=== PATIENT | female | born 1960 | race Caucasian/White ===

== ENCOUNTER 2021-12-31 12:49 | Outpatient (RCR) | payer OTHER, SELFPAY | END 2022-02-25 11:49 | disposition home or self-care (01) | PROVIDERS: PCP Family Medicine; Visit Provider Family Medicine | DX: M25.511 Pain in right shoulder (principal); M19.011 Primary osteoarthritis, right shoulder; Z51.89 Encounter for other specified aftercare | CPT/HCPCS: 97110; 97140 ==

== ENCOUNTER 2022-03-25 13:45 | Outpatient (CLI) | payer OTHER, SELFPAY ==
--- NOTE | 2022-03-25 14:00 | CRLHL7_ITS ---
For Patients: As a result of the Century Cures Act, medical imaging exams and procedure reports are released immediately into your electronic medical record. You may view this report before your referring provider. If you have questions, please contact your health care provider. BILATERAL SCREENING MAMMOGRAM WITH COMPUTER-AIDED DETECTION AND TOMOSYNTHESIS TECHNIQUE: CC and MLO views were obtained. These mammographic images have been obtained using full-field digital technique. These mammographic images were interpreted with the benefit of computer-aided detection. Breast Tomosynthesis was used in this interpretation. COMPARISON FILM: 02/12/21. FINDINGS: There are scattered areas of fibroglandular density IMPRESSION: There is no radiographic evidence for malignancy. ASSESSMENT: BI-RADS Category 1: Negative RECOMMENDATION: Routine screening mammogram in 1 year. A lay language report of this examination will be provided to the patient. Ben Jean-Baptiste M.D. Diagnostic Radiologist [email or web address] WENDY/balta / be/Dictated by: Ben Jean-Baptiste MD @ 03/26/2022 10:52:00 AM (Electronically Signed)
== END 2022-03-25 13:46 | disposition home or self-care (01) ==
LOC: MAMMO 13:45
PROVIDERS: PCP Family Medicine; Visit Provider Family Medicine
DX: Z12.31 Encounter for screening mammogram for malignant neoplasm of breast (principal)
CPT/HCPCS: 77063; 77067

== ENCOUNTER 2022-09-09 08:40 | Outpatient (CLI) | payer OTHER, SELFPAY | END 2022-09-09 08:41 | disposition home or self-care (01) | PROVIDERS: PCP Family Medicine; Visit Provider Family Medicine | DX: Z00.00 Encounter for general adult medical examination without abnormal findings (principal); E03.9 Hypothyroidism, unspecified; Z13.6 Encounter for screening for cardiovascular disorders; Z11.59 Encounter for screening for other viral diseases | CPT/HCPCS: 80053; 80061; 84443; 86803 ==

== ENCOUNTER 2022-09-27 15:19 | Outpatient (CLI) | payer OTHER, SELFPAY ==
--- NOTE | 2022-09-27 16:00 | CRLHL7_ITS ---
For Patients: As a result of the Cures Act, medical imaging exams and procedure reports are released immediately into your electronic medical record. You may view this report before your referring provider. If you have questions, please contact your health care provider. Indication: No abnormalities left thigh Technique: Ultrasound extremity left soft tissue Comparison: None Findings: Patient`s scan left lateral the area of clinical concern. No sonographic abnormalities including no masses, adenopathy, free fluid or fluid collections. Impression: No sonographic abnormalities left lateral 5. Clinical follow-up recommended. Dictated by Ben Finney MD @ 09/27/2022 4:15:02 PM (Electronically Signed)
== END 2022-09-27 15:20 | disposition home or self-care (01) ==
LOC: US 15:20
PROVIDERS: PCP Family Medicine; Visit Provider Surgery
DX: D17.9 Benign lipomatous neoplasm, unspecified (principal)
CPT/HCPCS: 76882

== ENCOUNTER 2023-03-29 09:45 | Outpatient (CLI) | payer OTHER, SELFPAY ==
--- NOTE | 2023-03-29 10:15 | CRLHL7_ITS ---
For Patients: As a result of the Century Cures Act, medical imaging exams and procedure reports are released immediately into your electronic medical record. You may view this report before your referring provider. If you have questions, please contact your health care provider. BILATERAL SCREENING MAMMOGRAM WITH COMPUTER-AIDED DETECTION AND TOMOSYNTHESIS TECHNIQUE: CC and MLO views were obtained. These mammographic images have been obtained using full-field digital technique. These mammographic images were interpreted with the benefit of computer-aided detection. Breast Tomosynthesis was used in this interpretation. COMPARISON FILM: 03/25/22, 02/12/21. FINDINGS: There are scattered areas of fibroglandular density IMPRESSION: There is no radiographic evidence for malignancy. ASSESSMENT: BI-RADS Category 1: Negative RECOMMENDATION: Routine screening mammogram in 1 year. A lay language report of this examination will be provided to the patient. Ben Jean-Baptiste M.D. Diagnostic Radiologist [email or web address] MYNOR/Dictated by: Ben Jean-Baptiste MD @ 03/29/2023 12:44:00 PM (Electronically Signed)
== END 2023-03-29 09:46 | disposition home or self-care (01) ==
LOC: MAMMO 09:46
PROVIDERS: PCP Family Medicine; Visit Provider Family Medicine
DX: Z12.31 Encounter for screening mammogram for malignant neoplasm of breast (principal)
CPT/HCPCS: 77063; 77067

== ENCOUNTER 2023-10-27 13:20 | Outpatient (CLI) | payer MEDICARE, OTHER, SELFPAY | END 2023-10-27 13:21 | disposition home or self-care (01) | PROVIDERS: PCP Family Medicine; Visit Provider Family Medicine | DX: Z00.00 Encounter for general adult medical examination without abnormal findings (principal); E03.9 Hypothyroidism, unspecified; E78.5 Hyperlipidemia, unspecified; K76.0 Fatty (change of) liver, not elsewhere classified; G47.00 Insomnia, unspecified | CPT/HCPCS: 80053; 80061; 84443 ==

== ENCOUNTER 2023-11-16 14:35 | Outpatient (CLI) | payer MEDICARE, OTHER, SELFPAY ==
--- NOTE | 2023-11-16 15:00 | XR_ITS ---
Patient: MARGIE LIN Facility:?[facility] Patient ID:?[id number] Site Patient ID:?[id number]. Site :?[id number] Study:?DEXA-Bone Density -11/16/2023 3:23:11 PM Ordering Physician:REBECCA Final Report: DXA BONE MINERAL DENSITY STUDY Reason for exam: Screening osteoporosis. Current height (in): 64. Weight (lb): 175. Menopause age: 56. Ethnicity: White. 1. Have you had a previous hip or vertebral fracture? No. 2. Have you had any fractures during your adult life which did not result from significant trauma (e.g., auto accident)? No. 3. Did either of your parents have a hip fracture? No. 4. Do you smoke? No. 5. Have you ever taken Glucocorticoids? No. 6. Do you have rheumatoid arthritis? No. 7. Do you have secondary osteoporosis? No. 8. Do you drink 3 or more alcoholic drinks per day? No. 9. Are you being treated for osteoporosis? No. 10. Have you ever taken any of the following medications: Actonel, Evista, Fosamax, Miacalcin, Reclast, Boniva, Forteo, HRT (i.e. estrogen/hormone therapy), Protelos, Prolia, Vitamin D, Calcium, other ? please specify. ANSWER: No. 11. Do you have any of the following medical conditions: Anorexia or bulimia, asthma or emphysema, end stage renal disease, hyperparathyroidism, any seizure disorders, cancer, inflammatory bowel diseases, hysterectomy, other ? please specify. ANSWER: No. 12. What was your maximum height (inches)? 64. 13. Do you perform weight bearing exercise regularly? Yes. 14. Do you regularly consume dairy products? Yes. 15. Do you drink caffeinated beverages? Yes. 16. At what age did your period start? 11. 17. Are you premenopausal? No. 18. How many full term pregnancies have you had? 2. 19. Have you ever missed your period for more than 6 months in a row (not including or menopause)? No. TECHNIQUE: Bone mineral density study was performed using the Nuve. FINDINGS: The results of the study expressed as bone mineral density (BMD) are as follows: Lumbar spine L1 to L4: BMD: 1.014 g/cm2. T-score: -0.3. Z-score: 1.5. Neck Left: BMD: 0.694 g/cm2. T-score: -1.4. Z-score: 0.1. Right: BMD: 0.711 g/cm2. T-score: -1.2. Z-score: 0.2. Total Left: BMD: 0.80 g/cm2. T-score: -1.0. Z-score: 0.2. Right: BMD: 0.781 g/cm2. T-score: -1.3. Z-score: -0.1. IMPRESSION: Osteopenia. FRAX 10-year Fracture Risk Major Osteoporotic Fracture: 8.4 percent Hip Fracture: 0.8 percent Reported Risk Factors: [place] () Neck BMD=0.694, BMI=30.0 Ben Jean-Baptiste M.D. Diagnostic Radiologist [email or web address] WENDY/sp R& Transcribed: 7:55 p.m. SP/Dictated by: Ben Jean-Baptiste MD @ 11/17/2023 9:21:00 AM Signed by:?Ben Jean-Baptiste MD @11/18/2023 5:25:07 AM (Electronic Signature)
== END 2023-11-16 14:36 | disposition home or self-care (01) ==
LOC: RAD 14:36
PROVIDERS: PCP Family Medicine; Visit Provider Family Medicine
DX: Z13.820 Encounter for screening for osteoporosis (principal); M85.89 Other specified disorders of bone density and structure, multiple sites
CPT/HCPCS: 77080

== ENCOUNTER 2024-11-01 11:36 | Outpatient (CLI) | payer MEDICARE, OTHER, SELFPAY | END 2024-11-01 11:37 | disposition home or self-care (01) | PROVIDERS: PCP Family Medicine; Visit Provider Family Medicine | DX: Z00.01 Encounter for general adult medical examination with abnormal findings (principal); E03.9 Hypothyroidism, unspecified; E78.5 Hyperlipidemia, unspecified; K76.0 Fatty (change of) liver, not elsewhere classified | CPT/HCPCS: 80053; 80061; 84443 ==

== ENCOUNTER 2024-11-07 11:54 | Outpatient (CLI) | payer MEDICARE, OTHER, SELFPAY ==
--- NOTE | 2024-11-07 12:15 | CRLHL7_ITS ---
For Patients: As a result of the Cures Act, medical imaging exams and procedure reports are released immediately into your electronic medical record. You may view this report before your referring provider. If you have questions, please contact your health care provider. Examination: US abdominal aorta Indication: Abdominal aortic aneurysm screening. Technique: Jane scale and color Doppler images of the aorta and common iliac arteries are obtained. Comparison: None Findings: Proximal aorta: 2.5 x 2.5 cm Mid aorta: 2.1 x 2.1 cm Distal aorta: 1.6 x 1.6 cm Right common iliac artery: 1.1 x 1.1 cm Left common iliac artery: 1.2 x 1.2 cm Impression: No abdominal aortic aneurysm. Dictated by Ben Jean-Baptiste MD @ 11/07/2024 2:39:37 PM (Electronically Signed)
== END 2024-11-07 11:55 | disposition home or self-care (01) ==
LOC: US 11:55
PROVIDERS: PCP Family Medicine; Visit Provider Family Medicine
DX: Z13.6 Encounter for screening for cardiovascular disorders (principal); Z87.891 Personal history of nicotine dependence
CPT/HCPCS: 76706

== ENCOUNTER 2025-02-07 14:53 | Outpatient (CLI) | payer MEDICARE, OTHER, SELFPAY ==
--- NOTE | 2025-02-07 15:20 | CRLHL7_ITS ---
For Patients: As a result of the Century Cures Act, medical imaging exams and procedure reports are released immediately into your electronic medical record. You may view this report before your referring provider. If you have questions, please contact your health care provider. INDICATION: BILATERAL SCREENING MAMMOGRAM, ASYMPTOMATIC 64 Y/O FEMALE COMPARISON: 03/29/2023, 03/25/2022, 02/12/2021 TECHNIQUE: Digital mammogram in CC and MLO projections including computer-aided detection (CAD) and tomosynthesis. BREAST COMPOSITION: There are scattered areas of fibroglandular density. FINDINGS: No suspicious findings. ASSESSMENT: BI-RADS 1 Negative RECOMMENDATION: Annual screening mammogram. A lay language report of this examination will be provided to the patient. Dictated by: Ben Jean-Baptiste MD @ 02/08/2025 08:57:18 (Electronically Signed)
== END 2025-02-07 14:54 | disposition home or self-care (01) ==
LOC: MAMMO 14:54
PROVIDERS: PCP Family Medicine; Visit Provider Family Medicine
DX: Z12.31 Encounter for screening mammogram for malignant neoplasm of breast (principal)
CPT/HCPCS: 77063; 77067

== ENCOUNTER 2025-04-02 12:08 | Outpatient (CLI) | payer MEDICARE, OTHER, SELFPAY ==
[2025-04-02 12:31] VITALS: BP 139/85; PULSE 84; RESP 16; TEMP 36.6; O2SAT 97
--- NOTE | 2025-04-02 13:25 | P.PCN_ITS ---
Procedure Note Time Seen by Provider: 13:45 Date Seen: 04/02/25 Provider Contact Time: 14:40 Date of procedure: 04/02/25 Will [facility] bill your pro fee for this procedure?: Yes Procedure: CRYONEUROLYSIS TREATMENT REPORT REFERRING PROVIDER: Baldomero Florentino TREATMENT PROVIDER: Tino Head PREOPERATIVE DIAGNOSIS: Right knee osteoarthritis POSTOPERATIVE DIAGNOSIS: Right knee osteoarthritis? PROCEDURE: Cryoneurolysis of Multiple Sensory Nerves of the Knee ANESTHESIA: Local INDICATIONS: The patient is a very pleasant 64-year-old female patient with primary osteoarthritis involving the right knee who presents today for cryoneurolysis of multiple sensory nerves to the knee for severe knee pain.?Patient medical history was reviewed. The risks, benefits, treatment alternatives, and complications were discussed with the patient, including but not limited to bleeding, infection, nerve or tissue damage.?Informed consent was obtained. ? PRE-TREATMENT MOTOR ASSESSMENT/PAIN SCORE: Patient was able to demonstrate intact gross motor function with plantarflexion, dorsiflexion, adduction, abduction, hip flexion, and extension of the lower extremity.?Pre-treatment pain score of 7 out of 10 in the right knee. DESCRIPTION OF PROCEDURE: After obtaining informed consent, the patient was brought back to the treatment room and positioned supine on the table.?The right lower extremity was prepped with Chlorhexadine.?We began the procedure by performing our procedural pause.?Once this was completed and verified to be accurate, I began the procedure by identifying the nerves with the use of bedside ultrasound.?After the nerves were identified, the skin was marked and, using 1% lidocaine plain, the area of the nerves were anesthetized. ? After the anesthetic was administered, the Smart Tip 2190 cryoneurolysis needle was inserted into the treatment sites using ultrasound guidance.?Treatment was then initiated on the right lower extremity with the following 5 nerves treated: Superior, superior medial, superior lateral, inferior medial genicular nerves and the infrapatellar branch of the saphenous nerve. At the termination of the treatment, the cryoneurolysis needle was removed with the patient's skin cleansed and Band-Aids an Waylon wrap applied. Patient tolerated the procedure without any incident or concern.? Patient was then instructed to stand, mobilize the joint, and was examined to ensure gross motor skills were intact. COMPLICATIONS: None POST-TREATMENT PAIN SCORE: 1 out of 10. Right knee DISPOSITION: Discharge instructions were given to the patient with education on the post-procedure expectations. Patient was instructed to call the Ortho clinic with any post-procedure concerns or questions.
[2025-04-02 14:43] VITALS: BP 150/79; PULSE 73; RESP 16; O2SAT 97
== END 2025-04-02 14:49 | disposition home or self-care (01) ==
LOC: OP CLINIC 12:08
PROVIDERS: PCP Family Medicine; Visit Provider Nurse Anesthetist, Certified Registered
DX: M17.11 Unilateral primary osteoarthritis, right knee (principal)
CPT/HCPCS: 64640; 76942; C9809

== ENCOUNTER 2025-04-04 13:59 | Outpatient (CLI) | payer MEDICARE, OTHER, SELFPAY | END 2025-04-04 14:00 | disposition home or self-care (01) | PROVIDERS: PCP Family Medicine; Visit Provider Family Medicine | DX: Z01.818 Encounter for other preprocedural examination (principal) | CPT/HCPCS: 80053; 87086 ==

== ENCOUNTER 2025-04-12 06:39 | Day surgery (SDC) | payer MEDICARE, OTHER, SELFPAY ==
[2025-04-12] VITALS (17 sets, daily range): BP systolic 87–140; BP diastolic 52–76; PULSE 75–83; RESP 14–16; TEMP 36.7–37.3; O2SAT 90–98; BMI 36.0
[2025-04-12] MEDS: OXYCODONE (CR) 10 MG TAB.ER.12H PO (07:30)
[2025-04-12] MEDS: ACETAMINOPHEN 500 MG TABLET 1000 MG PO (07:30)
[2025-04-12] MEDS: LACTATED RINGERS 1000 ML 1,000 ML 100 ML IV ×2 (07:58→10:10)
[2025-04-12] MEDS: SODIUM CHLORIDE 0.9 % (FLUSH) 10 ML SYRINGE IVF (08:00)
[2025-04-12] MEDS: MIDAZOLAM HCL 1 MG/ML inj IVP (08:43)
--- NOTE | 2025-04-12 08:56 | W.PM.H&PU ---
History & Physical Update History & Physical Update H&P Reviewed and patient assessed: No changes noted
--- NOTE | 2025-04-12 09:01 | P.NB_ITS ---
Nerve Block Nerve Block Time Seen by Provider: 08:47 Date Seen: 04/12/25 Type of block requested by surgeon for post-operative analgesia: adductor canal Side: right Time out performed: Yes Verification of patient name: Yes Verification of date of : Yes Site marking: site marked Name of person performing procedure: Pito Dunbar Assistants, if any: ELLIOTT Mendieta Continuous monitoring Was continuous monitoring of O2 sat, B/P, color television console monitor, recorded every 15 minutes?: Yes Procedure Checklist: sterile prep, needles and gloves Ultrasound guided. Images saved: Yes Medications given in 5ml increments after negative aspiration: Ropivicaine %: 0.5 mL: 30 Needle gauge: 20 Precedex (mcg): 25 Patient tolerated procedure well: Yes Additional comments: Injected in 5mL increments after negative aspiration Block Charges Block Charge (with Pro Fee): Femoral Nerve Use of Ultrasound Machine for Block: Yes- US Guidance/pain block
--- NOTE | 2025-04-12 09:04 | W.PM.NB ---
Nerve Block Nerve Block Time Seen by Provider: 08:50 Date Seen: 04/12/25 Type of block requested by surgeon for post-operative analgesia: geniculars Side: right Time out performed: Yes Verification of patient name: Yes Verification of date of : Yes Site marking: site marked Name of person performing procedure: Pito Dunbar Assistants, if any: ELLIOTT Mendieta Continuous monitoring Was continuous monitoring of O2 sat, B/P, playground monitor, recorded every 15 minutes?: Yes Procedure Checklist: sterile prep, needles and gloves Ultrasound guided. Images saved: No Medications given in 5ml increments after negative aspiration: Ropivicaine %: 0.5 mL: 12 Needle gauge: 25 Patient tolerated procedure well: Yes Additional comments: Injected in 4 mL increments after negative aspiration Block Charges Block Charge (with Pro Fee): Genicular Nerve Block Use of Ultrasound Machine for Block: No
--- NOTE | 2025-04-12 09:08 | SUR.PREOP ---
TIME?OUT:?0843 PT/RN/MDA?VERIFICATION?OF?SURGICAL?SITE,?PROCEDURE,?AND?CONSENT OBTAINED?PRIOR?TO?INVASIVE?PROCEDURE.
[2025-04-12] MEDS: TRANEXAMIC ACID 100 MG/ML INJ 1000 MG IV (09:38)
--- NOTE | 2025-04-12 10:41 | PM.ORPRC ---
Procedure Note Date of procedure: 04/12/25 Procedure: PREOPERATIVE DIAGNOSIS: 1. Right knee osteoarthritis, primary, severe POSTOPERATIVE DIAGNOSIS: 1. Right knee osteoarthritis, primary, severe PROCEDURE: 1. Right total knee arthroplasty, Press-Fit, Rotating Platform - No tourniquet SURGEON: Baldomero Florentino MD. JOURNEYMAN MILLWRIGHT: Roger Qureshi PA-C - Of note, a skilled urology physician assistant was critical for this case to aid in patient positioning, tissue retraction, limb manipulation/positioning, and closure. ANESTHESIA: Spinal anesthetic EBL: 100ml IMPLANTS: DePuy J&J uncemented TKA - Attune PS femur size 5 narrow Size 4 tibia Rotating Platform 5 RP poly spacer 35 mm Affixium patella TOURNIQUET: None COMPLICATIONS: None evident INDICATIONS: The patient is a pleasant 64-year-old female who has experienced severe right knee pain and difficulty bearing weight. Workup included x-rays which revealed severe osteoarthrosis in the knee. Given the deformity, the dysfunction, and the pain, as well as the failure of nonoperative management, recommendation was made for surgery. FINDINGS: Full-thickness chondral loss diffusely throughout the medial compartment and to a lesser degree patellofemoral and lateral compartments. Degenerative meniscus pathology medial greater than lateral. Moderate effusion upon entering the joint. DESCRIPTION OF PROCEDURE: Following a thorough discussion of risks, benefits, and alternatives consent was obtained and the right knee was marked. The patient was brought to the operating room and placed supine on the operating table. Induction of anesthesia was undertaken. 2 g IV Ancef and 1 g tranexamic acid was administered within 1 hr of incision preoperatively. Proper time-out was performed identifying proper patient, site, procedure. The operative extremity was prepped and draped in the appropriate sterile fashion using ChloraPrep after the patient was positioned supine with all bony prominences well padded. A longitudinal, anterior, midline skin incision was made starting approximately 3cm proximal to the superior pole of the patella and advanced distal to the tibial tubercle. A sub vastus approach was utilized. After mobilizing the patella, the retropatellar fatpad was resected and the synovium in the suprapatellar pouch excised to visualize the anterior femoral cortex. Patellar prep showed initial measurement/thickness of 20 mm. It was resected back to approximately 14 mm. The patella prep was completed with drilling and a trial placed followed by a protector plate until final component implantation. Femoral preparation was performed via an intramedullary guide. Step drill allowed access into the femoral canal. The distal cutting guide was placed with 5? of valgus and 10 mm cut on the distal femur. Femur was sized using a anterior referencing guide (in addition to referencing the transepicondylar axis and [place]'s line) in 3? of external rotation. This was found to have a best fit with the sizing noted above. The 4 in 1 cutting block was then placed, and the distal femur shaped accordingly. The box cut was then completed. We turned our attention to the proximal tibia. Extramedullary guide was utilized for cutting with the goal of being 90 degree cut from the mechanical axis of the tibia in the varus/valgus plane utilizing tibial crest as the primary alignment. Initially a 2 mm resection was performed from the medial tibial plateau. An additional 2 mm of tibial resection was needed to achieve proper balance in both flexion & extension. Ultimately, balancing was achieved in both flexion and extension in both varus and valgus. The knee was able to achieve full extension comfortably. It was sized to be a best fit with as noted above. At this stage, trial implants were removed, the tibia and femoral and patellar components were opened and inserted. The real poly spacer was opened and inserted. A 3 min Betadine soak performed. Finally, a final irrigation round with normal saline was performed. Closure performed with 0 PDS and #0 Stratafix for the quad tendon/retinaculum. 2-0 Vicryl/Stratafix for the subcutaneous and 4-0 Monocryl for subcuticular closure. Dressings were applied and the patient was awoken from anesthesia and transferred the PACU in stable condition. A skilled urology physician assistant was critical for this case to aid in patient positioning, tissue retraction, bone exposure, limb manipulation/positioning, patient safety, and closure. PLAN: 1. Weight bear as tolerated operative extremity. 2. 23 hr perioperative antibiotics. 3. Ice. 4. PT/OT consults for ambulation assistance/mobility education. 5. Social work consult for discharge planning. 6. DVT prophylaxis with at SCDs, and aspirin twice daily.
--- NOTE | 2025-04-12 11:23 | CRLHL7_ITS ---
For Patients: As a result of the Cures Act, medical imaging exams and procedure reports are released immediately into your electronic medical record. You may view this report before your referring provider. If you have questions, please contact your health care provider. Indication: POST OP RIGHT TKA Technique: Two views right knee Findings/Impression: Hardware from a right total knee arthroplasty is in satisfactory position. Bone alignment is normal. No sign of acute fracture. Postop changes are within normal limits. Dictated by Ben Jean-Baptiste MD @ 04/15/2025 10:04:15 AM (Electronically Signed)
--- NOTE | 2025-04-12 11:24 | P.ANES_ITS ---
Anesthesia Charges Start Date/Time Anesthesia Start Date: 04/12/25 Anesthesia Start Time: 09:20 Stop Date/Time Anesthesia Stop Date: 04/12/25 Anesthesia Stop Time: 11:21 Coding CPT Codes CPT Codes: ANESTH KNEE ARTHROPLASTY - 60817 ([id number]) P2 - PATIENT W/MILD SYST DISEASE, QZ - TANKER SERVICE ATTENDANT SVC W/O WOOD STOCK BLANK HANDLER BY
--- NOTE | 2025-04-12 11:24 | W.ANESCHARGE ---
Anesthesia Charges Start Date/Time Anesthesia Start Date: 04/12/25 Anesthesia Start Time: 09:20 Stop Date/Time Anesthesia Stop Date: 04/12/25 Anesthesia Stop Time: 11:21 Coding CPT Codes CPT Codes: ANESTH KNEE ARTHROPLASTY - 31874 ([id number]) P2 - PATIENT W/MILD SYST DISEASE, QZ - CONTAINER FINISHING INSPECTOR SVC W/O TRANSIT AUTHORITY POLICE OFFICER BY
== END 2025-04-12 13:35 | disposition home or self-care (01) ==
LOC: OR 06:41
PROVIDERS: PCP Family Medicine; Visit Provider Orthopaedic Surgery Sports Medicine
PROC: (CPT 27447; principal; 2025-04-12 08:45)
DX: M17.11 Unilateral primary osteoarthritis, right knee (principal); G89.18 Other acute postprocedural pain; L40.9 Psoriasis, unspecified; E03.9 Hypothyroidism, unspecified; K76.0 Fatty (change of) liver, not elsewhere classified; F41.8 Other specified anxiety disorders
CPT/HCPCS: 27447; 01402; 64447; 64454; 73560; 76942; 97110; 97116; 97161; A9270; C1713; C1776; J0690; J1100; J2250; J2371; J2405; J2704; J2795; J3010; J7120

== ENCOUNTER 2025-04-14 14:15 | Emergency (ER) | payer MEDICARE, OTHER, SELFPAY ==
--- OUTSIDE RECORDS SUMMARY | 2023-03-15 04:31 | XMS_ITS | Continuity of Care Document ---
Author Organization [facility] Address [address] [address] [place] [address] Phone Care Team Providers Care Investment Banking Associate Name Role Phone Shane Kmi CRNA Unavailable Allergies, Adverse Reactions, Alerts Substance Reaction Status Criticality Sulfa (Sulfonamide Antibiotics) unknown Active No Information Medications Medication Instructions Dosage Effective Dates (start - stop) Status Comments atorvastatin 20 mg tablet take 1 tablet by oral route every day 20 MG - Active Synthroid 50 mcg Tab Take one tablet by mouth daily - Active Vitamin D3 1,000 unit capsule take 1 Capsule by Oral route once 1 Capsule - No Longer Active CoQ-10 & Fish Oil 50 mg-300 (180-120)mg-30 unit capsule - No Longer Active Procedures Procedure Date Colonoscopy Flex; W/remov Les- Colonoscopy Flex; W/bx 1/mx Level Iv-surg Path Gross/micro 23 Colonoscopy Flex; W/remov Les- 20 Colonoscopy Flex; W/bx 1/mx Level Iv-surg Path Gross/micro Colonoscopy Flex; W/remov Les- 14 Level Iv-surg Path Gross/micro 14 Colonoscopy Flex; W/remov Les- 09 Level Iv-surg Path Gross/micro 09 Advance Directives Directive Yes / No Effective Date File Name No Information Encounters Encounter Description Practice Location Reason(s) For Visit Diagnoses Date Provider Providers Copied on Encounter [facility], [address] [address], [place], [id number], [place] tel:[phone] [facility] No Information 3 Julio Lynn. [address] [facility], [address], [id number], [place]. tel:[phone] Referring Provider: Javier Lewis MD, [address], [address]. tel:[phone] [facility], [address] [address], [place], [id number], [place] tel:[phone] [facility] GI Symptoms or Concerns (chief complaint) Colorectal polypsDiverticu losis of colon without diverticulitisH emorrhoids, internalEncount er for screening for malignant neoplasm of colonPersonal history of colonic polypsOther hemorrhoidsDvrt clos of lg int w/o perforation or abscess w/o bleedingPersona l history of colonic polyps 3 Joshua Herrera. [address], [id number], [place]. tel:[phone] Referring Provider: Referral Self, USE FOR SELF REFERRALS. [facility], [address] [address], [place], [id number], [place] tel:[phone] [facility] No Information 3 Dakota Tapia. [address] [facility], [address] [address], [place], [place], [id number], [place]. tel:[phone] [facility], [address] [address], [place], [place], [id number], [place] tel:[phone] [facility] Colorectal polypsPersonal history of colonic polypsDiverticu losis of colonInternal hemorrhoidsEnco unter for screening for malignant neoplasm of colonBenign neoplasm of cecumBenign neoplasm of ascending colonEncounter for screening for malignant neoplasm of colonBenign neoplasm of ascending colonBenign neoplasm of cecumPersonal history of colonic polyps 0 Eric Gaitan. [address], [id number], [place]. tel:[phone] Referring Provider: Referral Self, USE FOR SELF REFERRALS. [facility], [address] [address], [place], [id number], [place] tel:[phone] [facility] No Information 9 Nat Lynn. [address], [id number], [place]. tel:[phone] [facility], [address] [address], [facility] [place], [id number], [place] tel:[phone] [facility] Polyp-intes/rec t/stom-unc BehNeoplasm of uncertain behavior of small intestine 4 No Information [facility], [address] [address], [facility] [place], [id number], [place] tel:[phone] [facility] Personal History Colon PolypsBenign Neoplasm Colon 4 No Information [facility], [address] [address], [facility] [place], [id number], [place] tel:[phone] [facility] Polyp-intes/rec t/stom-unc BehColon Cancer ScreeningBenign Neoplasm Lg Bowel 9 Michael Alvarado. [address], [id number], [place]. tel:[phone] Family History Family Member Type Diagnosis Age At Onset Daughter Problem (finding) Alive and well Mother Problem (finding) malignant neoplasm of u terus Son Problem (finding) Alive and well Sister Problem (finding) Alive and well Brother Problem (finding) Alive and well Father Problem (finding) alcoholism Immunizations Vaccine Date Status Comments Afluria Qd administered Note: [facility] bi-directional interface ; Source: Other Registry SARS-COV-2 (COVID-19) vaccin e, mRNA, spike protein, LNP, bivalent, preservative free, 30 mcg/0.3 mL dose, es-sucrose formulation administered Note: [facility] bi-direct ional interface ; Source: Other Registry SARS-COV-2 (COVID-19) vaccin e, mRNA, spike protein, LNP, preservative free, 100 mcg/0.5mL dose or 50 mcg/0.25mL dose administered Note: [facility] bi -directional interface ; Source: Other Registry SARS-COV-2 (COVID-19) vaccin e, mRNA, spike protein, LNP, preservative free, 100 mcg/0.5mL dose or 50 mcg/0.25mL dose administered Note: [facility] bi -directional interface ; Source: Other Registry SARS-COV-2 (COVID-19) vaccin e, vector non-replicating, recombinant spike [id number], preservative free, 0.5 mL administered Note: [facility] bi- directional interface ; Source: Other Registry Afluria Qd administered Note: [facility] bi-directional interface ; Source: Other Registry Afluria Qd administered Note: [facility] bi-directional interface ; Source: Other Registry Fluzone Quad 6mo or older administered Note: [facility] bi-direct ional interface ; Source: Other Registry zoster vaccine recombinant administered N ote: [facility] bi-directional interface ; Source: Other Registry zoster vaccine recombinant administered N ote: [facility] bi-directional interface ; Source: Other Registry Influenza, injectable, Madin Fabi Canine Kidney, preservative free administered Note: [facility] bi-direct ional interface ; Source: Other Registry tetanus toxoid, reduced diphtheria toxoid, and acellular pertussis vaccine, adsorbed administered Note: [facility] b i-directional interface ; Source: Other Registry Afluria Qd administered Note: [facility] bi-directional interface ; Source: Other Registry Fluzone Quad 6mo or older administered Note: [facility] bi-direct ional interface ; Source: Other Registry tetanus toxoid, reduced diphtheria toxoid, and acellular pertussis vaccine, adsorbed administered Note: [facility] b i-directional interface ; Source: Other Registry Novel [id number], all formulations administered Note: [facility] bi-direct ional interface ; Source: Other Registry tetanus and diphtheria toxoi ds, adsorbed, preservative free, for adult use (2 Lf of tetanus toxoid and 2 Lf of diphtheria toxoid) administered Note: [facility] bi-direct ional interface ; Source: Other Registry Influenza, seasonal, injectable administe red Note: [facility] bi- directional interface ; Source: Other Registry Influenza, seasonal, injectable administe red Note: [facility] bi- directional interface ; Source: Other Registry Payers Payer name Insurance type Covered constitution party ID Vera gibson(s) [facility] [id number] Social History Type Description Quantity Date Captured Comments Sex Female Smoking Status No Information Chief Complaint And Reason For Visit No Information Reason For Referral Reason For Referral No Information Plan Of Treatment Date Type Action Status Referral Ordered: Colonoscopy Appointment date/timeframe: 05/21/2019 ordered History Of Present Illness Encounter Date Complaint History Of Prese nt Illness GI Symptoms or Concerns Functional Status Date Functional Assessmen t No Information Instructions Date Instruction Additional Infor mation Diverticulosis/Diverticulitis Re lated to Hemorrhoids, internal Colon Polyps Related to Hemor rhoids, internal Hemorrhoids Related to Hemor rhoids, internal Colon Cancer Prevention Related to Hemorrhoids, internal High Fiber Diet Related to Hemor rhoids, internal Assessments Type Assessment Date No Information Patient Care Teams Name Effective Dates (start - stop) Status Members No Information
--- OUTSIDE RECORDS SUMMARY | 2023-03-15 04:31 | XMS_ITS | Continuity of Care Document ---
Author Organization [facility] Address [address] [address] [place] [address] Phone Care Team Providers Care Representative Name Role Phone Shane Kim CRNA Unavailable Allergies, Adverse Reactions, Alerts Substance [...] Diagnoses Date Provider Providers Copied on Encounter [facility], [address] [address], [place], [id number], [place] tel:[phone] [facility] No Information 3 Julio Lynn. [address] [facility], [address], [id number], [place]. tel:[phone] Referring Provider: Javier Lewis MD, [address], [address]. tel:[phone] [facility], [address] [address], [place], [id number], [place] tel:[phone] [facility] GI Symptoms or Concerns (chief complaint) Colorectal polypsDiverticu losis of colon without diverticulitisH emorrhoids, internalEncount er for screening for malignant neoplasm of colonPersonal history of colonic polypsOther hemorrhoidsDvrt clos of lg int w/o perforation or abscess w/o bleedingPersona l history of colonic polyps 3 Joshua Herrera. [address], [id number], [place]. tel:[phone] Referring Provider: Referral Self, USE FOR SELF REFERRALS. [facility], [address] [address], [place], [id number], [place] tel:[phone] [facility] No Information 3 Dakota Tapia. [address] [facility], [address] [place] [address], [place], [place], [id number], [place]. tel:[phone] [facility], [address] [address], [place], [place], [id number], [place] tel:[phone] [facility] Colorectal polypsPersonal history of colonic polypsDiverticu losis of colonInternal hemorrhoidsEnco unter for screening for malignant neoplasm of colonBenign neoplasm of cecumBenign neoplasm of ascending colonEncounter for screening for malignant neoplasm of colonBenign neoplasm of ascending colonBenign neoplasm of cecumPersonal history of colonic polyps 0 Eric Gaitan. [address], [id number], [place]. tel:[phone] Referring Provider: Referral Self, USE FOR SELF REFERRALS. [facility], [address] [address], [place], [id number], [place] tel:[phone] [facility] No Information 9 Nat Lynn. [address], [id number], [place]. tel:[phone] [facility], [address] [address], [facility] [place], [id number], [place] tel:[phone] [facility] Polyp-intes/rec t/stom-unc BehNeoplasm of uncertain behavior of small intestine 4 No Information [facility], [address] [address], [facility] [place], [id number], [place] tel:[phone] [facility] Personal History Colon PolypsBenign Neoplasm Colon 4 No Information [facility], [address] [address], [facility] [place], [id number], [place] tel:[phone] [facility] Polyp-intes/rec t/stom-unc BehColon Cancer ScreeningBenign Neoplasm Lg Bowel 9 Michael Alvarado. [address], [id number], [place]. tel:[phone] Family History Family Member Type Diagnosis Age [...] i-directional interface ; Source: Other Registry Novel [id number], all formulations administered Note: [facility] bi-direct ional [...] Registry Payers Payer name Insurance type Covered alliance party ID Vera gibson(s) [facility] [id number] Social History Type Description Quantity Date Captured [...]
[2025-04-14] VITALS (17 sets, daily range): BP systolic 113–126; BP diastolic 52–65; PULSE 68–76; RESP 14–21; TEMP 36.4; O2SAT 92–98; BMI 34.3
--- OUTSIDE RECORDS SUMMARY | 2025-04-14 14:18 | XMS_ITS | Clinical Summary ---
Author Organization [facility] Address [address] [place] [address] Care Team Providers Care Health And Nutrition Specialist Name Role Phone None, Md Primary Care Provider [facility], No Primary Unavailable Unavailable Allergies Active Allergy Reactions Criticality Noted Date Comments Sulfa (Sulfonamide Antibiotics) Unknown 07/2008 Medications atorvastatin (LIPITOR) 20 mg oral tablet Take 1 tablet (20 mg) by mouth at bedtime. 03/22/2023 Active levothyroxine (SYNTHROID) 50 mcg oral tablet Take 1 tablet (50 mcg) by mouth. 03/23/2023 Active coenzyme [id number] 100-5 mg-unit oral Cap Take by mouth Daily. Active Active Problems No known active problems Social History Tobacco Use Types Packs/Day Years Used Date Smoking Tobacco: Never Smokeless Tobacco: Never Tobacco Cessation:Counseling Given: Not Answered Comments Unknown Sex and Gender Information Value Date Recorded Sex Assigned at Not on file Legal Sex Female 8:22 AM ANGIOGRAPHY NURSE Gender Identity Not on file Sexual Orientation Not on file Last Filed Vital Signs Vital Sign Reading Time Taken Comments Blood Pressure 123/76 06/02/2023 10:20 AM ANGIOGRAPHY NURSE Pulse 68 06/02/2023 10:20 AM ANGIOGRAPHY NURSE Temperature - - Respiratory Rate - - Oxygen Saturation 97% 06/02/2023 10:20 AM ANGIOGRAPHY NURSE Inhaled Oxygen Concentration - - Weight 80.5 kg (177 lb 6.4 oz) 06/02/2023 10:20 AM ANGIOGRAPHY NURSE Height 162.6 cm (5' 4) 06/02/2023 10:20 AM ANGIOGRAPHY NURSE Body Mass Index 30.45 06/02/2023 10:20 AM ANGIOGRAPHY NURSE Plan of Treatment Health Maintenance Due Date Last Done Comments Hepatitis C Screening 1960 Depression Assessment (PHQ-2) 09/10/1959 Pneumococcal 50+ Years (1 of 1 - PCV) 2008 Yearly Review of HCD 2008 Osteoporosis Screening 05/13/2013 05/13/2011 Mammogram Screening 02/12/2023 02/12/2021, 01/03/2020, 08/23/2018, Additional history exists Adult Tetanus Booster 06/05/2024 06/05/2014 , 08/06/2013, 02/24/2004 COVID-19 Vaccine ( season) 2025 03/30/2022, 09/24/2021, 04/17/2021, Additional history exists Influenza Vaccine (#1) 2025 , 03/26/2021, 03/18/2020, Additional history exists Colonoscopy 03/15/2033 03/15/2023, 03/15/2023 RSV Vaccines (1 - 1-dose 75+ series) 2033 Zoster Vaccine Completed 01/09/2019, 08/30/2018 Meningococcal B Vaccine Aged Out No l onger eligible based on patient's age to complete this topic Insurance [address] [id number] [place] [address] Datameer OPEN ACCESS/CHOICE FREYA ASHRAF [id number] Care Teams Health And Nutrition Specialist Relationship Specialty Start Date End Date None, PCP - General 06/01/23 Clinic, No Primary PCP - Primary Care Clinic 06/01/23
--- OUTSIDE RECORDS SUMMARY | 2025-04-14 14:18 | XMS_ITS | Clinical Summary ---
Author Organization [facility] Address [address] [place] [id number] Care Team Providers Care Advisory Internship Name Role Phone Alex Barcenas MD Primary Care Provider [phone] Allergies Active Allergy Reactions Criticality Noted Date Comments Sulfa (Sulfonamide Antibiotics) 10/26 Medications Cholecalciferol, Vitamin D3, (VITAMIN D-3) 400 unit Chew Take by mouth. 0 2 Active Coenzyme A48-Ahqpbjt E (COQ10 SG 100) 100-100 mg-unit cap Take 2 capsules by mouth once daily. 0 5 Active propranolol (INDERAL LA) 120 mg Cs24 Sustained-Release capsuleIndications :Migraine with aura and without status migrainosus, not intractable Take 1 capsule by mouth once daily. 90 capsule 1 7 Active clobetasol 0.05% TOPICAL (TEMOVATE) 0.05 % external solutionIndication s:Scalp psoriasis Apply topically to affected area(s) 2 times daily. As needed 1 Bottle 7 Active SUMAtriptan (IMITREX) 50 mg tabletIndications: Migraine with aura and without status migrainosus, not intractable TAKE 1 TABLET BY MOUTH TWO TIMES A DAY IF NEEDED FOR MIGRAINE. GIVE AT MINIMUM 2 HOURS APART . MAXIMUM DOSE 4 TABLETS IN 24 HOURS . 10 tablet 4 7 Active cholestyramine-suc jose 4 G per scoop (QUESTRAN) 4 gram powderIndications: Chronic diarrhea 1/2-1 SCOOP DAILY 1 Container 2 7 Active levothyroxine (SYNTHROID) 50 mcg tabletIndications: Acquired hypothyroidism Take 1 tablet by mouth once daily. 30 tablet 8 Active atorvastatin (LIPITOR) 20 mg tabletIndications: Dyslipidemia TAKE ONE TABLET BY MOUTH EVERY DAY 30 tablet 8 Active Active Problems Problem Noted Date Diagnosed Date Psoriasis 10/16/2014 Adenomatous polyp of colon 06/05/2014 Overview (06/05/2014): Last colo: 04/2014; Due repeat in 5 years Hip pain, left 06/05/2014 Overview (06/05/2014): Sciatic Nerve Cyst; Dr. Morin ([facility]) Dyslipidemia 02/02/2010 Depression with anxiety 02/02/2010 Overview (02/02/2010): mild Migraines 02/02/2010 Hypothyroidism 02/02/2010 Resolved Problems Problem Noted Date Diagnosed Date Resolved Date Routine health maintenance 02/02/2010 0 01/13/2017 Overview (05/19/2012): Last cpx-11/03 Last mammogram-05/08 Last lipid 11/03, LDL-78 Last colonoscopy-09/28 Immunizations Immunization Administration Dates Next Due Influenza, CCIIV3 (Age >=6 MO) (Egg Free) 2015 Influenza, IIV3 (Age >=3 years) 04/25/2015 Influenza, IIV4 04/23/2014 Td (Age >=7 Years) 02/24/2004 Tdap 06/05/2014 Family History Medical History Relation Name Comments Good Health Brother Alcohol/Drug Father Alcohol Cancer Mother female Cancer-ovarian Mother age 55 Hyperlipidemia Mother Other Mother heart valve d/o (replaced) Good Health Sister Cancer-breast No Family History Relation Name Status Comments Brother Father Mother Sister Social History Tobacco Use Types Packs/Day Years Used Date Smoking Tobacco: Former Smokeless Tobacco: Never Tobacco Cessation:Counseling Given: Yes Comments:quit at age 38 Alcohol Use Standard Drinks/Week Comments No 0 (1 standard drink = 0.6 oz pur e alcohol) Comments No Sex and Gender Information Value Date Recorded Sex Assigned at Not on file Legal Sex Female 7:54 AM [employer] Gender Identity Not on file Sexual Orientation Not on file 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 Not on file Not on file Obstetrics History Para Term AB IAB SAB Ectopic Multiple Livin g Live Births 2 2 Date Outcome GA Total Labor Labor/2nd/3rd Weight Sex Type Anes PTL Yulisa A1 A5 Name Clin Para Para Last Filed Vital Signs Vital Sign Reading Time Taken Comments Blood Pressure 116/84 01/13/2017 11:24 AM CDT Pulse 64 01/13/2017 11:24 AM CDT Temperature 37 C (98.6 F) 12/01/2016 4:12 PM CDT Respiratory Rate - - Oxygen Saturation 94% 11/19/2011 7:31 PM CDT Inhaled Oxygen Concentration - - Weight 93.9 kg (207 lb) 01/13/2017 11:24 AM CDT Height 163.8 cm (5' 4.5) 01/13/2017 11:24 AM CD T Body Mass Index 34.98 01/13/2017 11:24 AM CDT Plan of Treatment Health Maintenance Due Date Last Done Comments Pneumococcal series for age 50+ (1 of 1 - PCV) 2008 Zoster (shingles) series for age 50+ (1 of 2) 2008 Depression screening for age 12+ 12/01/2017 12/01/2016, 10/24/2015 BMI (ht and wt on same day) for age 18+ 01/13/2018 01/13/2017, 12/01/2016, 06/25/2016, Additional history exists Lipids for age 45-75 06/25/2021 06/25/2016, 02/09/2016, 06/13/2015, Additional history exists Mammogram for age 45-75 02/12/2022 02/13/20 21, 01/03/2020, 08/23/2018, Additional history exists DEXA/DXA scan for age 65+ 09/10/2023 05/13/2011 Tetanus booster 06/05/2024 06/05/2014, 02/24/2004 COVID-19 vaccine series (2 - season) 2025 10/02/2020 Influenza Vaccine (#1) 2025 6, 04/25/2015, 04/23/2014 Colonoscopy through age 75 03/15/203303/15, 07/12/2019, 05/20/2014, Additional history exists RSV vaccine for adults or (1 - 1-dose 75+ series) 2033 Hepatitis C screening for age 18-79 Completed 06/05/2014 Hepatitis B series for 19+ Aged Out N o longer eligible based on patient's age to complete this topic Procedures Procedure Name Priority Date/Time Associated Diagnosis Comments SCAN-COLONOSCOPY 03/15/2023 9:30 AM CDT XR MAMMO DWIGHT BILAT SCREEN Routine 02/12/2021 11:03 AM CDT Visit for screening mammogram LIPID PANEL Routine 06/25/2016 10:26 AM [employer] Dyslipidemia ANTI HCV Routine 06/05/2014 8:37 AM [employer] Need for hepatitis C screening test XR DXA BONE DENSITY 2 SITES AXIAL Routine 05/13/2011 1:46 PM [employer] Routine general medical examination at a health care facility from Last 3 Months or Most Recently Relevant to Health Maintenance Results * SCAN-COLONOSCOPY (03/15/2023 9:30 AM CDT) Narrative Procedure Note AdanJavier Ryo MD - 03/15/2023 8:11 AM CDT [facility] [address] [place] [address], [address], [place] [address] Patient Name: Jenny Mancuso Gender: Female Exam Date: 03/15/2023 Visit Number: [id number] Age: 62 Years Date of : 1960 Attending MD: Javier Lewis MD Medical Record#: [id number] Procedure: Colonoscopy Indications: Previous advanced adenomatous polyp(s) Follow up adenomatous polyp(s) Referring MD: Referral Self Primary MD: Teagan Boateng MD Medications: Admitting Medications: 0.9% Normal Saline at TKO Intra Procedure Medications: Patient received monitored anesthesia care. Complications: No immediate complications Procedure: An examination of the heart and lungs was performed and found to be withinacceptable limits. . The patient was therefore deemed a reasonablecandidate for endoscopy and sedation. The risks and benefits of the procedure were explained to the patient.After obtaining informed consent, the patient received monitoredanesthesia care and I passed the scope without difficulty via the rectum to the cecum. The appendiceal orificeand ic valve were identified. The scope was retroflexed during theexamination The quality of the prep was excellent (Brennen/Gat Split). This was a complete examination throughout the entire colon. Findings: Polyp location: cecum. Quantity: 1. Size: 2 mm. Polyp shape: sessile. Maneuver: polypectomy was performed with a cold biopsy forceps. Removal: complete. Retrieval: complete. Bleeding: none. Polyp location: ascending colon. Quantity: 1. Size: 4 mm. Polyp shape:sessile. Maneuver: polypectomy was performed with a cold snare . Removal: complete. Retrieval: complete. Bleeding: none. Polyp location: descending colon. Quantity: 1. Size: 6 mm. Polypshape: sessile. Maneuver: polypectomy was performed with a cold snare . Removal: complete. Retrieval: complete. Bleeding: none. Cecum and ascending polyps in same bottle. Diverticulosis. Location: - sigmoid. Description: mild. Size:small. Quantity: few. No inflammation present. Hemorrhoids. Internal hemorrhoids without bleeding. Remainder of the exam is normal. Impression: Colorectal polyps Diverticulosis of colon without diverticulitis Hemorrhoids, internal Preliminary Plan: The patient and their physician will receive a copy of the pathologyreport as well as pathology-based recommendations for future screening orsurveillance. Pathology Results: A: COLON, CECUM/ASCENDING, POLYPS: 1. Normal colonic mucosa; lymphoid aggregates are present(clinically, 2 polyps) 2. Negative for serrated change, dysplasia, and malignancy B: COLON, DESCENDING, POLYP: 1. Normal colonic mucosa; a lymphoid aggregate is present(clinically, 1 polyp) 2. Negative for serrated change, dysplasia, and malignancy MICROSCOPIC A: Performed B: Performed SPECIAL STAINING/DEEPER A: Deeper B: Deeper Electronically signed by: Thomas Holt MD Interpreted at [address], [place], [id number] Orders Instruction(s)/Education: Instruction/Education Timeframe Assessment Colon Cancer Prevention K64.8 Colon Polyps K64.8 Diverticulosis/Diverticulitis K64.8 Hemorrhoids K64.8 High Fiber Diet K64.8 Final Plan: Repeat colonoscopy in 5 years for Colon cancer surveillance. We will attempt to contact you at appropriate intervals via U.S. mail. Wemay not be able to find you or contact you at that time, therefore youshould know that the responsibility for following our recommendation restswith you. If you don't hear from us at the time your procedure is due,please contact our office to schedule an appointment. If your contactinformation should change, please contact our office so that we can updateyour record. _Electronically signed by: Javier Lewis MD 03/15/2023 cc: Teagan Boateng MD us Javier Arellano MD OTHER Final Resu lt * XR MAMMO DWIGHT BILAT SCREEN (02/12/2021 11:03 AM CDT) Anatomical Region Laterality Modality BREASTS, Breast Left, Breast Right Bilateral Mammography Impressions 02/14/2021 1:52 PM CDT There is no radiographic evidence for malignancy. Recommend annual mammograms. MAMMOGRAM ASSESSMENT: ACR 1 Negative PATIENTS: You will also receive a letter with your examination results in an easy to read format. If you have questions about your results, please contact your referring provider. Narrative 02/14/2021 1:52 PM CDT For Patients: As a result of the Century Cures Act, medical imaging exams and procedure reports are released immediately into your electronic medical record. You may view this report before your referring provider. If you have questions, please contact your health care provider. XR MAMMO DWIGHT BILAT SCREEN [[id number]] CLINICAL HISTORY: This is an asymptomatic 60 y.o. patient. INDICATION FOR EXAM: Mammogram Screening. TECHNIQUE: CC & MLO views were obtained. This study was evaluated with the assistance of Computer-Aided Detection. Breast Tomosynthesis was used in interpretation. COMPARISON FILM: Yes 01/03/20 08/14/18 FINDINGS: The breasts have scattered areas of fibroglandular density. There are no dominant masses, suspicious micro calcifications or areas of architectural distortion. Alla Roque MD MAMMO Final Result * (ABNORMAL) LIPID PANEL (06/25/2016 10:26 AM [employer]) CHOLESTEROL,TOTAL 198 100 - 199 mg/dL 06/25/2016 6:57 PM [employer] [facility] TRIGLYCERIDES 253(H) <150 mg/dL 06/25/2016 6:57 PM [employer] [facility] HDL CHOLESTEROL 42 >40 mg/dL 6 6:57 PM [employer] [facility] NON-HDL CHOLESTEROL 156(H) <145 mg/dl 06/25/2016 6:57 PM [employer] [facility] CHOL/HDL RATIO 4.71(H) <4.50 06/25/2016 6:57 PM [employer] [facility] LDL CHOLESTEROL 105 <=130 mg/dL 06/25/2016 6:57 PM [employer] [facility] PATIENT STATUS NOT GIVEN 06/25/2016 6:57 PM [employer] [facility] Blood BLOOD SPECIMEN / Unknown Venipuncture / Unknown 06/25/2016 10:26 AM [employer] 06/25/2016 10:26 AM [employer] us Alex Barcenas MD CHEMISTRY Final Resu lt [facility] [address] [place] [address], [place] * ANTI HCV [[id number]] (06/05/2014 8:37 AM [employer]) HEPATITIS C ANTIBODY Non-Reacti ve Non-Reacti ve 06/05/2014 1:39 PM [employer] [facility] Blood specimen (specimen) BLOOD SPECIMEN / Unknown Venipuncture / Unknown 06/05/2014 8:37 AM [employer] 06/05/2014 8:37 AM [employer] Narrative [facility] - 06/05/2014 1:39 PM [employer] Antibodies to HCV not detected; does not exclude the possibility of exposure to HCV. Yokasta DAVID SEND OUTS Final Result [facility] [address] [place] [address], [place] * XR DEXA BONE DENSITY 2 SITES (05/13/2011 1:46 PM [employer]) Anatomical Region Laterality Modality Spine, HIPS, HIPL, HIPR Other 05/13/2011 1:46 PM [employer] Narrative 05/13/2011 3:48 PM [employer] BONE DENSITY BONE DENSITY (DEXA) May 13, 2011 01:46:00 PM HISTORY: Baseline study. COMPARISON: None. TECHNIQUE: The study was performed using DEXA in the AP lumbar spine and AP femur using a Hologic Discovery C. FINDINGS: Using DEXA, the results were reported according to T score. The T score is the standard deviation from the peak bone mass in a normal young patient. A T score of 0 to -1.0 is normal. A T score of -1.0 to -2.5 correlates with osteopenia. A T score of less than -2.5 correlates with osteoporosis. The total T-score from L1 to L4 is +1.0. The T-score for the left femoral neck is -0.2. The bone mineral density of the left femoral neck is 0.831 g/cm2. IMPRESSION: No evidence of osteopenia or osteoporosis. Procedure Note Shun Trejo - 05/13/2011 BONE DENSITY BONE DENSITY (DEXA) May 13, 2011 01:46:00 PM HISTORY: Baseline study. COMPARISON: None. TECHNIQUE: The study was performed using DEXA in the AP lumbar spine and AP femur using a Hologic Discovery C. FINDINGS: Using DEXA, the results were reported according to T score. The T score is the standard deviation from the peak bone mass in a normal young patient. A T score of 0 to -1.0 is normal. A T score of -1.0 to -2.5 correlates with osteopenia. A T score of less than -2.5 correlates with osteoporosis. The total T-score from L1 to L4 is +1.0. The T-score for the left femoral neck is -0.2. The bone mineral density of the left femoral neck is 0.831 g/cm2. IMPRESSION: No evidence of osteopenia or osteoporosis. Alex Barcenas MD DEXA Final Resu lt from Last 3 Months or Most Recently Relevant to Health Maintenance Insurance [id number] [place] [address] HP FREYA [id number] Care Teams Advisory Internship Relationship Specialty Start Date End Date Alex Barcenas MD [address] [place] [address] PCP - General Family Practice 08/14/18
--- OUTSIDE RECORDS SUMMARY | 2025-04-14 14:18 | XMS_ITS | Clinical Summary ---
Author Organization [facility] Address [address] [place] [address] Care Team Providers Care Pen Ruler Operator Name Role Phone Alla Roque MD Primary Care Provider [phone] Allergies Active Allergy Reactions Criticality Noted Date Comments Sulfa Antibiotics 10/03/2007 unknown Medications Cholecalciferol (VITAMIN D3 PO) Take 1,000 Units by mouth daily Active co-enzyme Q-10 100 MG CAPS capsule Take by mouth daily Active multivitamin w/minerals (MULTI-VITAMIN) tablet Take 1 tablet by mouth daily Active atorvastatin (LIPITOR) 20 MG tabletIndications:M ixed hyperlipidemia Take 1 tablet (20 mg) by mouth daily 90 tablet 3 1 Active levothyroxine (SYNTHROID/LEVOTHRO ID) 50 MCG tabletIndications:O ther specified hypothyroidism Take 1 tablet (50 mcg) by mouth daily 90 tablet 3 1 Active PROLENSA 0.07 % ophthalmic solution PLACE 1 DROP 4 TIMES DAILY 1 WEEK BEFORE AND 4 WEEKS AFTER, THEN TWICE DAILY FOR 4 WEEKS 1 Active LOTEMAX 0.5 % GEL PLACE 1 DROP 4 TIMES DAILY 1 WEEK BEFORE AND 4 WEEKS AFTER SURGERY, THEN TWICE DAILY FOR 4 WEEKS 1 Active moxifloxacin (VIGAMOX) 0.5 % ophthalmic solution PLACE 1 DROP IN EYE FOUR TIMES DAILY 1 WEEK BEFORE AND FOR 4 WEEKS AFTER, THEN TWICE DAILY FOR 4 WEEKS 1 Active Active Problems Problem Noted Date Diagnosed Date Fatty liver 03/06/2021 Adenomatous polyp of colon 06/05/2014 Overview (10/30/2019): Overview: Last colo: 04/2014; Due repeat in 5 years Depression with anxiety 02/02/2010 Overview (10/30/2019): Overview: mild Dyslipidemia 02/02/2010 Symptomatic menopausal or female climacteric sta debby 10/03/2007 Other specified hypothyroidism 10/03/2007 Overview (03/28/2015): Problem list name updated by automated process. Provider to review Migraine 10/03/2007 Overview (03/28/2015): Problem list name updated by automated process. Provider to review Resolved Problems Problem Noted Date Diagnosed Date Resolved Date ACP (advance care planning) 10/30/2019 03/10/2020 Health Snf 10/30/2019 12/12/2023 Lumbago 06/07/2017 03/06/2021 Psoriasis 10/16/2014 03/06/2021 Hip pain, left 06/05/2014 10/24/2020 Overview (10/30/2019): Overview: Sciatic Nerve Cyst; Dr. Morin ([facility]) Hyperlipidemia LDL goal <130 04/26/2010 10/24/2020 Mixed hyperlipidemia 10/03/2007 021 Backache 10/03/2007 03/06/2021 Overview (03/28/2015): Problem list name updated by automated process. Provider to review Immunizations Immunization Administration Dates Next Due COVID-19 Vaccine (Joana) 10/02/2020 Flu, Unspecified 04/10/2016 INFLUENZA,TRIVALENT (FLUCELVAX) 04/10/2016 Influenza (H1N1) 05/28/2009 Influenza (IIV3) PF 04/25/2015,05/14/2003,1998 Influenza Vaccine >6 months,quad, PF 03/18/2020, 04/12/2019,04/23/2014 TD,PF 7+ (Tenivac) 02/24/2004,07/05/1994 TDAP Vaccine (Boostrix) 06/05/2014,08/06/2013 Td (Adult), Adsorbed 02/24/2004 Zoster recombinant adjuvanted (Shingrix) 019,08/30/2018 Family History Medical History Relation Comments Lipids Maternal Grandfather Cancer - colorectal Maternal Grandmother Lipids Maternal Grandmother Cancer Mother ovarian? Lipids Mother Relation Status Comments Maternal Grandfather Maternal Grandmother Mother Social History Tobacco Use Types Packs/Day Years Used Date Smoking Tobacco: Former Smokeless Tobacco: Never Comments:quit 1999 Alcohol Use Standard Drinks/Week Comments No 0 (1 standard drink = 0.6 oz pur e alcohol) AUDIT-C Answer Date Recorded Q1: How often do you have a drink containing alc ohol? 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 Not on file Not on file Not on file Last Filed Vital Signs Vital Sign Reading Time Taken Comments Blood Pressure 118/70 03/06/2021 2:04 PM CDT Pulse 61 03/06/2021 2:04 PM CDT Temperature 36.6 C (97.8 F) 03/06/2021 2:04 PM CDT Respiratory Rate 20 01/20/2021 5:27 PM CDT Oxygen Saturation 97% 03/06/2021 2:04 PM CDT Inhaled Oxygen Concentration - - Weight 85.5 kg (188 lb 9.6 oz) 03/06/2021 2:04 P M CDT Height 162.6 cm (5' 4) 03/06/2021 2:04 PM CDT Body Mass Index 32.37 03/06/2021 2:04 PM CDT Plan of Treatment Health Maintenance Due Date Last Done Comments ANNUAL REVIEW OF HM ORDERS 1960 CT COLONOGRAPHY 1960 DEXA 1960 FIT 1960 FLEX SIG 1958 sDNA (Cologuard) 1958 LUNG CANCER SCREENING 2008 PNEUMOCOCCAL VACCINE 50+ YEARS (1 of 1 - PCV) 2008 TSH W/FREE T4 REFLEX 10/31/2021 10/31/2020, 10/30/2019, 10/03/2007, Additional history exists MAMMO SCREENING 02/12/2023 02/12/2021, 07/0 02/2020, 01/29/2009, Additional history exists FALL RISK ASSESSMENT 09/10/2023 DIABETES SCREENING 03/06/2024 03/06/2021, 0 10/31/2020, 10/30/2019, Additional history exists PHQ-2 (once per calendar year) 2024 10/31/2020, 10/30/2019 COVID-19 VACCINE ( - season) 2025 10/02/2020 INFLUENZA VACCINE (#1) 2025 0, 04/12/2019, 04/10/2016, Additional history exists ADVANCE CARE PLANNING 03/10/2025 03/10/2020, 020 LIPID 10/31/2025 10/31/2020, 05/0 10/2019, 07/05/2010, Additional history exists DTAP/TDAP/TD VACCINE (4 - Td or Tdap) 10/29/2029 10/30/2019 (Not Needed), 06/05/2014, 08/06/2013, Additional history exists COLONOSCOPY 03/15/2033 03/15/2023, 06/27, 10/08/2003 COLORECTAL CANCER SCREENING 03/15/2033 RSV VACCINE (1 - 1-dose 75+ series) 2033 ZOSTER VACCINE Completed 01/09/2019, 08/30/2018 PAP Discontinued 10/30/2019, 10/26, 07/22/2006 HEPATITIS C SCREENING Completed 10/31/2020, 021 HPV VACCINE (No Doses Required) Completed MENINGITIS VACCINE Aged Out No longer eligible based on patient's age to complete this topic Procedures Procedure Name Priority Date/Time Associated Diagnosis Comments BASIC METABOLIC PANEL (BFP) Routine 03/06/2021 3:13 PM CDT Preoperative examination HEPATITIS C ANTIBODY Routine 10/31/2020 11:01 AM CDT Encounter for hepatitis C screening test for low risk patient TSH WITH FREE T4 REFLEX Routine 10/31/2020 11:01 AM CDT Other specified hypothyroidism LIPID PANEL (BFP) Routine 10/31/2020 Depression with anxiety THINPREP PAP RFLX HPV MRNA E6/E7 ([facility]) Routine 10/30/2019 10:30 AM CDT Encounter for gynecological examination (general) (routine) without abnormal findings HC MAMMO SCREEN BILATATERAL, INCL CAD WHEN PERF Routine 01/29/2009 8:39 AM CDT COLONOSCOPY Routine 10/08/2003 DIAGNOSIS NOT YET DEFINED from Last 3 Months or Most Recently Relevant to Health Maintenance Results * (ABNORMAL) Basic Metabolic Panel (BFP) (03/06/2021 3:13 PM CDT) Carbon Dioxide 29.7 20 - 32 mmol/L [facility] Creatinine 0.82 0.60 - 1.30 mg/dL [facility] Glucose 112(A) 60 - 99 mg/dL [facility] Sodium 141.7 135 - 146 mmol/L [facility] Potassium 4.79 3.5 - 5.3 mmol/L [facility] Chloride 104.1 98 - 110 mmol/L [facility] Urea Nitrogen 13 7 - 25 mg/dL [facility] Calcium 9.2 8.6 - 10.3 mg/dL [facility] BUN/Creatinine Ratio 15.9 6 - 22 [facility] Blood 03/06/2021 3:13 PM CDT us Alla Roque MD LAB - NON-BEAKER BLOOD LABS Final Result [facility] [address] [place] [phone] * TSH with free T4 reflex ([facility]) (10/31/2020 11:01 AM CDT) TSH 2.45 0.40 - 4.50 mIU/L [facility] Blood 10/31/2020 11:0 1 AM CDT 11/01/2020 12:45 AM CDT Narrative Resulting Agency Comment Performing Organization Information: [facility] [address] [place] [address] Carlos Johnson M.D. us Alla Roque MD LAB - BLOOD ORDERABLES Final Result [facility] [address] [place], [place] [address] [phone] * (ABNORMAL) Lipid Panel (BFP) (10/31/2020) Cholesterol 147 0 - 199 mg/dL [facility] Triglycerides 176(A) 0 - 149 mg/dL [facility] HDL Cholesterol 39(A) 40 - 150 mg/dL [facility] LDL Cholesterol Direct 73 0 - 130 mg/dL [facility] Cholesterol/HDL Ratio 4 0 - 5 [facility] Blood 10/31/2020 us Alla Roque MD LAB - NON-BEAKER BLOOD LABS Final Result [facility] [address] [place] [id number] * ThinPrep Pap and HPV (mRNA E6/E7){HPV-REFLEX} ([facility]) (10/30/2019 10:30 AM CDT) Clinical History SEE COMMENT Q [facility] Comment:Postmenopausal LMP PM [facility] Last Pap Diagnosis 50,520 Q [facility] Prev Bx Dx NONE GIVEN [facility] Source Cervix [facility] Statement of Adequacy SEE COMMENT [facility] Comment: Satisfactory for evaluation. Endocervical/transformation zone component present. Descriptive Diagnosis SEE COMMENT [facility] Comment:Negative for intraep ithelial lesion or malignancy. Track Repairer: SEE COMMENT [facility] Comment: DXP, CT(ASCP) CT Screening location: [address] [address] Comment SEE COMMENT [facility] Comment: EXPLANATORY NOTE: The Pap is a screening test for cervical cancer. It is not a diagnostic test and is subject to false negative and false positive results. It is most reliable when a satisfactory sample, regularly obtained, is submitted with relevant clinical findings and history, and when the Pap result is evaluated along with historic and current clinical information. Cervical swab (specimen) 10/30/2019 10:30 AM CDT 10/31/2019 7:29 AM CDT Narrative Resulting Agency Comment Performing Organization Information: [place] [facility] [id number] Carlos Johnson us Alex Barcenas MD LAB - NON-BEAKER NON-BLOOD Final Result Performing Organization Address City/[facility] Co de Phone Number [facility] [address] [phone] * SCREENING MAMMOGRAPHY DIGITAL (BILAT) (01/29/2009 8:39 AM CDT) Anatomical Region Laterality Modality Other 01/29/2009 8:39 AM CDT Impressions 01/29/2009 9:18 AM CDT SCREENING MAMMOGRAM BILATERAL, DIGITAL w/ CAD - January 29, 2009 BREAST SYMPTOMS: No current breast complaints COMPARISON: 01/25/2008 PARENCHYMAL PATTERN: Scattered fibroglandular elements. COMMENTS: No findings of suspicion for malignancy. IMPRESSION: BI-RADS 1, NEGATIVE. RECOMMENDATION: Annual screening mammography. us Alex Barcenas MD SPECIAL IMAGING STUDIES Ed ited * COLONOSCOPY (10/08/2003) Impressions Sujatha Brothers - 10/08/2003 Debug Technician Type ID Date and Time Author Operative Report [id number] 10/08/2003 12:00 AM ROXY TRAMMELL This document has not been authenticated Document Text : 58 REFERRING MD: Alex Barcenas MD 1st ASS'T: 2nd ASS'T: PRE-OPERATIVE DIAGNOSIS: POST-OPERATIVE DIAGNOSIS: OPERATION: Colonoscopy. INDICATION: This is a 43-year-old who in 1999 had a colonoscopy for blood in her stool with constipation. A polyp was found. This was nondiagnostic. She subsequently has had significant vaginal bleeding and has become iron deficient. She has been referred for repeat colonoscopy. PHYSICAL EXAMINATION: The blood pressure is 111/70. The pulse is 80. The heart is normal. The lungs are clear. PROCEDURE: The patient was explained the risks, benefits, and alternatives and appeared to understand. She was administered 100 mcg of fentanyl, 4 mg of Versed, and 0.6 of atropine. The Olympus colonoscope was introduced into the rectum and passed through a long sigmoid colon and eventually passed to the cecum. The cecum was identified by the ileocecal valve and the appendiceal orifice. The prep was good and the colonoscopy thought to be adequate and complete. The colonoscope was slowly withdrawn. In the rectosigmoid area were three small polyps which were hot biopsied. No other abnormalities were identified. The colonoscope was withdrawn from the patient. The patient tolerated the procedure well. There were no apparent complications. IMPRESSION: Three small polyps. PLAN: We will check the pathology. The patient should have repeat colonoscopy in either five or 10 years. 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
--- OUTSIDE RECORDS SUMMARY | 2025-04-14 14:18 | XMS_ITS | Clinical Summary ---
Author Organization [facility] Address [address], [place] [address] Care Team Providers Care Security Program Manager Name Role Phone Clinician, Not Found MD Primary Care Provider Un available Source Comments You are receiving this document as you are listed as the primary care provider,follow-up provider, or the patient has been referred to you for consultation.This is in compliance with the Medicare and[facility] Hospitalca[facility] EHR Incentive Program,which states Providers who transition their patient to another setting of careor provider of care or refers their patient to another provider of care shouldprovide summary care record for each transition of care or referral. [facility] Allergies Active Allergy Reactions Criticality Noted Date Comments Sulfa Antibiotics Unknown 10/03/2007 unknown Medications tiZANidine (ZANAFLEX) 4 MG tablet Take 0.5-1 Tablets (2-4 mg) by mouth two times daily as needed. 40 Tablet 1 08/01/2024 Active levothyroxine (SYNTHROID) 50 MCG tablet Take 1 Tablet (50 mcg) by mouth daily. 09/05/2024 Active atorvastatin (LIPITOR) 20 MG tablet Take 1 Tablet (20 mg) by mouth daily at bedtime. 09/05/2024 Active Coenzyme Q10 100 MG Take by mouth. Active multivitamin with minerals (THERA M PLUS) tablet Take 1 Tablet by mouth daily. 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 Benign neoplasm of cecum 07/16/2019 Diverticular disease of large intestine 07/12/19 20 Hemorrhoids 07/12/2019 History of colonic polyps 07/12/2019 Polyp of colon 07/12/2019 Social History Tobacco Use Types Packs/Day Years Used Date Smoking Tobacco: Never Assessed Comments Unknown Sex and Gender Information Value Date Recorded Sex Assigned at Not on file Legal Sex Female 10:09 AM CDT Gender Identity Not on file Sexual Orientation Not on file Last Filed Vital Signs Vital Sign Reading Time Taken Comments Blood Pressure 136/88 09/12/2024 12:51 PM CDT Pulse 69 09/12/2024 12:51 PM CDT Temperature - - Respiratory Rate - - Oxygen Saturation - - Inhaled Oxygen Concentration - - Weight 87.5 kg (193 lb) 07/27/2024 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 Height 162.6 cm (5' 4) 07/27/2024 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 Body Mass Index 33.13 07/27/2024 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 Plan of Treatment Health Maintenance Due Date Last Done Comments Colon Cancer Screening Plan Due 1960 Diabetes Screening- (based on age and BMI) 1960 Hep C Screening (Preventive Services) 1960 Medicare Annual Wellness Visit 1960 Cholesterol 09/10/2003 Mammogram 02/12/2022 02/12/2021, 01/25, 01/03/2020, Additional history exists DTaP/Tdap/Td Vaccine (3 - Tdap) 06/05/2024 06/05/2014, 08/06/2013, 02/24/2004, Additional history exists Pneumococcal Vaccine 50+ Yrs (2 of 2 - PCV) 10/26/2024 10/27/2023 COVID-19 Vaccine ( season) 2025 03/27/2024, 04/28/2023, 03/30/2022, Additional history exists Influenza Vaccine (#1) 2025 , 04/04/2023, 04/21/2022, Additional history exists RSV Vaccine (1 - 1-dose 75+ series) 2033 Dexa Completed 05/13/2011, 05/13/2011 Zoster/Shingles Vaccine Completed 01/09/2019, 08/30 HepA Vaccine Aged Out No longer eligi ble based on patient's age to complete this topic HepB Vaccine Aged Out No longer eligi ble based on patient's age to complete this topic Hib Vaccine Aged Out No longer eligi ble based on patient's age to complete this topic IPV (Polio) Vaccine Aged Out No longe r eligible based on patient's age to complete this topic MCV4 Vaccine Aged Out No longer eligi ble based on patient's age to complete this topic Meningococcal B Vaccine Aged Out No l onger eligible based on patient's age to complete this topic Insurance [phone] [place] [address] [phone] [place] [address] MEDICARE SELF INSURED Care Teams Security Program Manager Relationship Specialty Start Date End Date Clinician, Not Found, [place] [address] PCP - General 07/11/24
--- OUTSIDE RECORDS SUMMARY | 2025-04-14 14:18 | XMS_ITS | Encounter Summary ---
Author Organization [facility] Address [address] [place] [address] Care Team Providers Care Test Eng Name Role Phone Alla Roque MD Primary Care Provider [phone] Alla Roque MD Unavailable [phone] Reason for Visit * Reason Comments Medication Refill Encounter Details Date Type Department Care Team (Late st Contact Info) Description 12/05/2020 Refill [facility] [address] [phone] Alla Roque MD [address] [phone] Medication Refill Social History Tobacco Use Types Packs/Day Years [...] Answer Date Recorded PHQ-2 Score 2 10/31/2020 Comments No Sex and Gender Information Value Date Recorded Sex Assigned at Not on file 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 No / Unsure 12/01/2020 9:36 AM CDT documented as of this encounter Plan of Treatment Not on file documented as of this encounter Visit Diagnoses Diagnosis Mixed hyperlipidemia documented in this encounter Care Teams Test Eng Relationship Specialty Start Date End Date Alla Roque MD [address] [address] PCP - General Family Medicine 09/10/20 Alla Roque MD [address] [address] Assigned PCP 11/20/20 04/17/24 documented as of this encounter
[2025-04-14] MEDS: MORPHINE 4 MG/ML INJ IVP ×2 (14:46→16:14)
[2025-04-14 14:56] LABS: Hematocrit* 33.5 % (33.0-51.0); Hemoglobin* 11.1 gm/dL (12.0-16.0); Immature Granulocytes Abs Auto 0.04 K/uL (0.00-0.30); Immature Granulocytes Pct Auto 0.4 %; Lymphocytes Absolute Auto 2.40 K/uL (0.90-2.90); Mean Corpuscular HGB Conc 33 gm/dL (32-36); Mean Corpuscular Hemoglobin 29 pg (26-34); Mean Corpuscular Volume 88 fL (80-100); RDW Coefficient of Variation % 13.5 % (11.5-15.5); Red Blood Count* 3.79 m/uL (4.00-5.20); White Blood Count* 9.85 K/uL (4.50-11.00)
[2025-04-14 15:09] LABS: Slide Review Reflex No
[2025-04-14 15:11] LABS: Chloride* 100 mmol/L (96-114); Potassium* 4.5 mmol/L (3.6-5.1); Sodium* 134 mmol/L (135-149)
[2025-04-14 15:14] LABS: Anion Gap 6 mEq/L (7-15); Blood Urea Nitrogen* 13 mg/dL (7-30); Carbon Dioxide* 28 mmol/L (20-32); Creatinine* 0.7 mg/dL (0.5-1.5); Est. Creatinine Clearance* 47.79; Estimated Glomerular Filt Rate 95 ml/min
[2025-04-14 15:15] LABS: Calcium* 8.5 mg/dL (8.4-10.6); Glucose* 117 mg/dL (60-115)
--- NOTE | 2025-04-14 15:30 | ED.GENADULT ---
HPI - General Adult General Date Seen: 04/14/25 Chief complaint: Dizziness/Vertigo Stated complaint: Dizziness Time Seen by Provider: 04/14/25 14:23 Source: patient Mode of arrival: ambulatory Limitations: no limitations History of Present Illness HPI narrative: Patient is a 64-year-old female presenting to the emergency department for lightheadedness and near-syncope. She states she had knee replacement surgery here in [place] 2 days ago. She has been able to ambulate. Over the past day she has been having worsening pain. States the pain is a 9/10 she has been using her prescribed pain medication. States the pain got so bad today that she got lightheaded. Had 2 episodes between 06/27/2029 were she was feeling very lightheaded and had to sit down. Each episode lasts about 5 minutes. Has not had further episodes since then. Has not any fevers, chills, chest pain, shortness of breath, weakness, numbness. No other concerns noted at this time. Related Data Home Medications ?Medication ?Instructions ?Recorded ?Confirmed coenzyme Q10 100 mg capsule mg PO DAILY 12/24/21 04/04/25 multivitamin 1 tab PO QDAY 09/09/22 04/12/25 mecobalamin (vitamin B12) 1,000 1,000 mcg PO QDAY 11/01/24 04/12/25 mcg chewable tablet magnesium 250 mg tablet 250 mg PO QDAY 12/27/24 04/12/25 turmeric 400 mg capsule mg PO 02/28/25 04/04/25 Previous Rx's ?Medication ?Instructions ?Recorded celecoxib 100 mg capsule (Celebrex) 100 - 200 mg (1 - 2 x 100 mg) PO 11/01/24 Held on 04/12/25. BID PRN pain #90 caps Instructions: Resume on 04/29/25. clobetasol 0.05 % topical cream 1 applic topical BID PRN psoriasis 11/01/24 #30 grams estradiol 0.01% (0.1 mg/gram) 1 g vaginal 2XW #42.5 grams 11/01/24 vaginal cream levothyroxine 50 mcg tablet 50 mcg PO DAILY #90 tabs 11/01/24 simvastatin 40 mg tablet 40 mg PO QHS #90 tabs 12/03/24 Walker- 2 Wheels #1 ea 10/07/25 cholestyramine 4 gram oral powder 4 g PO TID #231 grams 04/04/25 (Cholestyramine Light) aspirin 81 mg tablet,delayed 81 mg PO BID #60 tabs 04/12/25 release ondansetron 4 mg disintegrating 4 mg PO Q8H PRN nausea and 04/12/25 tablet vomiting #15 tabs oxycodone 5 mg tablet 5 mg PO Q4-8H PRN pain #40 tabs 04/12/25 sennosides 8.6 mg-docusate sodium 1 tab-cap PO BID PRN constipation 04/12/25 50 mg tablet (Senna-S) #15 tabs Allergies Allergy/AdvReac Type Severity Reaction Status Date / Time Sulfa (Sulfonamide Allergy Intermediate Rash Verified 04/12/25 07:17 Antibiotics) Review of Systems Status of ROS: Reports: 10 or more systems reviewed and unremarkable except as noted in History and below [facility] Medical History Psoriasis ?L40.9 - Psoriasis, unspecified (ICD-10) Tear of left gluteus medius tendon ?S76.012A - Strain of muscle, fascia and tendon of left hip, initial encounter (ICD-10) Dyslipidemia ?E78.5 - Hyperlipidemia, unspecified (ICD-10) Fatty liver ?K76.0 - Fatty (change of) liver, not elsewhere classified (ICD-10) Hypothyroidism ?E03.9 - Hypothyroidism, unspecified (ICD-10) Dyspareunia Arthritis of right shoulder region ?M19.011 - Primary osteoarthritis, right shoulder (ICD-10) Greater trochanteric bursitis of left hip ?M70.62 - Trochanteric bursitis, left hip (ICD-10) Tendinitis involving left hip abductors ?M76.892 - Other specified enthesopathies of left lower limb, excluding foot (ICD-10) Osteoarthritis of left hip ?M16.12 - Unilateral primary osteoarthritis, left hip (ICD-10) Calcific tendinitis of right shoulder ?M75.31 - Calcific tendinitis of right shoulder (ICD-10) Facet degeneration of lumbar region ?M47.816 - Spondylosis without myelopathy or radiculopathy, lumbar region (ICD-10) Foraminal stenosis of lumbar region ?M48.061 - Spinal stenosis, lumbar region without neurogenic claudication (ICD-10) Facet arthropathy, lumbar ?M47.816 - Spondylosis without myelopathy or radiculopathy, lumbar region (ICD-10) PMB (postmenopausal bleeding) ?N95.0 - Postmenopausal bleeding (ICD-10) History of cataract ?Z86.69 - Personal history of other diseases of the nervous system and sense organs (ICD-10) Anxiety with depression ?F41.8 - Other specified anxiety disorders (ICD-10) Surgical History History of cataract extraction ?Z98.49 - Cataract extraction status, unspecified eye (ICD-10) History of trigger finger ?Z87.39 - Personal history of other diseases of the musculoskeletal system and connective tissue (ICD-10) History of laparoscopic cholecystectomy ?Z90.49 - Acquired absence of other specified parts of digestive tract (ICD-10) History of hysteroscopy (~2010) ?Z98.890 - Other specified postprocedural states (ICD-10) History of carpal tunnel release of both wrists ?Z98.890 - Other specified postprocedural states (ICD-10) History of bunionectomy ?Z98.890 - Other specified postprocedural states (ICD-10) Family History Mother Cancer Family history of elevated blood lipids Maternal Grandmother Family history of elevated blood lipids Colorectal cancer Colon cancer Maternal Grandfather Family history of elevated blood lipids Social History Narrative: Cis-gender, heterosexual woman. Relationship status: . Spouse/Partner: Don Education: High school graduate Occupation: Retired Tobacco: Former smoker 1999 E-cigarettes: No Alcohol: No Illicit/recreational drugs: No Safety concerns at home or work: No Dietary restriction(s): No Exercise: Yes: Did not report type of exercise or frequency. What is your current living situation?: I presently have a place to live Problems where you live: no known problems In the past 12 months, utilities in danger of being shut off: no In past 12 months, lack of transportation kept you from medical appts, meetings, work, or getting things needed for daily living: no In the past 12 mos, have been you worried that your food would run out before you had money to buy more?: never true In the past 12 mos, the food you bought just didn't last and you didn't have money to buy more?: never true Smoking Status: Former smoker What tobacco products do you use: cigarettes Smoking quit date/years: >15 years ago Do you use any of these nicotine containing products: None Second hand tobacco smoke exposure: No How often do you have a drink containing alcohol: never AUDIT-C Alcohol total score: 0 Non-prescribed substance use: denies use Caffeine: Yes How often does anyone, including family, friends and others, physically hurt you: never How often does anyone, including family, friends and others, insult or talk down to you: never How often does anyone, including family, friends and others, threaten you with harm: never How often does anyone, including family, friends and others, scream or curse at you: never Are you using contraception or practicing any form of control: No Exam Narrative: Exam Narrative: Const: Well-nourished, Well-developed, in mild distress Eyes: PERRL, no conjunctival injection, and symmetrical lids HENT: Atraumatic external nose and ears. Moist mucous membranes. Neck: Symmetric, trachea midline, No thyromegaly. CVS: RRR, No murmurs or gallops. Peripheral pulses 2+ and equal in all extremities RESP: Unlabored respiratory effort. Clear to auscultation bilaterally. GI: Nontender/Nondistended, No rebound or guarding. MSK: Swollen right knee with surgical dressing placed over the top. Tenderness noted throughout the knee. Skin: Warm, Dry. No rashes or lesions. Neuro: Normal Muscle tone, No focal neurological deficits. Psych: Awake, Alert, & Oriented x3. Appropriate mood and affect. Const: Vital Signs, click to edit/add: Vital Signs - 24 hr 04/14/25 14:21 Temperature 97.5 F L Pulse Rate [Pulse Oximeter] 68 Respiratory Rate 16 Blood Pressure [Ri ght Upper Arm] 119/52 L Pulse Oximetry 97 Oxygen Delivery Me thod Room Air Course Vital Signs Vital signs: Initial Vital Signs Temperature 97.5 F L 04/14/25 14:21 Temperature Source Temporal Artery Scan 04/14/25 14:21 Pulse Rate 68 04/14/25 14:21 Respiratory Rate 16 04/14/25 14:21 Blood Pressure 119/52 L 04/14/25 14:21 Blood Pressure Mean 74 04/14/25 14:21 Blood Pressure Position Supine 04/14/25 14:21 Pulse Oximetry 97 04/14/25 14:21 Oxygen Delivery Method Room Air 04/14/25 14:21 Vital Signs Temperature 97.5 F L 04/14/25 14:21 Pulse Rate 68 04/14/25 14:21 Respiratory Rate 16 04/14/25 14:21 Blood Pressure 119/52 L 04/14/25 14:21 Pulse Oximetry 97 04/14/25 14:21 Oxygen Delivery Method Room Air 04/14/25 14:21 Temperature 97.5 F L 04/14/25 14:21 Pulse Rate 68 04/14/25 14:21 Respiratory Rate 16 04/14/25 14:21 Blood Pressure 119/52 L 04/14/25 14:21 Pulse Oximetry 97 04/14/25 14:21 Oxygen Delivery Method Room Air 04/14/25 14:21 Medications Administered Medications: Discontinued Medications Generic Name Dose Route Start Last Admin Trade Name Freq PRN Reason Stop Dose Admin Hydromorphone HCl 0.5 mg 04/14/25 16:42 04/14/25 16:47 Hydromorphone 0.5 Mg/0.5 Ml Inj IVP 04/14/25 16:43 0.5 mg ONCE ONE Administration Morphine Sulfate 4 mg 04/14/25 14:32 04/14/25 14:46 Morphine 4 Mg/Ml Inj IVP 04/14/25 14:33 4 mg ONCE ONE Administration Morphine Sulfate 4 mg 04/14/25 15:54 04/14/25 16:14 Morphine 4 Mg/Ml Inj IVP 04/14/25 15:55 4 mg ONCE ONE Administration Medical Decision Making [facility] Narrative Medical decision making narrative: Patient is a 64-year-old female presenting to emergency department for an episode lightheadedness. She does state lightheadedness did feel related to the right knee pain. Was not able to sleep last night due to the pain. Is currently not feeling lightheaded and feels asymptomatic other than the knee pain. Will do a workup for syncope including EKG, troponin, CBC, BMP. Will give her morphine for pain. EKG reviewed by myself shows no acute concerning abnormalities. Lab work returned showing no acute concerning abnormalities. I do not believe any imaging would be beneficial at this time. Her lightheadedness is likely related to vasovagal episode from the severe knee pain. She will need to follow-up with her surgeon about this knee pain. Continued to have some pain and for the pain medication was given. Eventually she was able to ambulate and pain is under control . She is safe for discharge and she agrees with this plan. Lab Data Labs: Lab Results 04/14/25 Range/Units 14:40 WBC 9.85 (4.50-11.00) K/uL RBC 3.79 L (4.00-5.20) m/uL Hgb 11.1 L (12.0-16.0) gm/dL Hct 33.5 (33.0-51.0) % MCV 88 (80-100) fL MCH 29 (26-34) pg MCHC 33 (32-36) gm/dL RDW Coeff of Domo 13.5 (11.5-15.5) % Plt Count 202 (140-440) K/uL Neut % (Auto) 58.7 (42.0-72.0) % Lymph % (Auto) 24.4 (20-44) % Turner % (Auto) 13.7 H (0.0-11.0) % Eos % (Auto) 2.6 (0.0-7.0) % Baso % (Auto) 0.2 (0.0-3.0) % Neut # (Auto) 5.78 (1.7-7.0) K/uL Lymph # (Auto) 2.40 (0.90-2.90) K/uL Turner # (Auto) 1.30 H (0.00-0.90) K/UL Eos # (Auto) 0.26 (0.00-0.50) K/uL Baso # (Auto) 0.02 (0.00-0.30) K/uL Abs Immat Gran (auto) 0.04 (0.00-0.30) K/uL Imm/Tot Granulo (auto) 0.4 % Sodium 134 L (135-149) mmol/L Potassium 4.5 (3.6-5.1) mmol/L Chloride 100 (96-114) mmol/L Carbon Dioxide 28 (20-32) mmol/L Anion Gap 6 L (7-15) mEq/L BUN 13 (7-30) mg/dL Creatinine 0.7 (0.5-1.5) mg/dL Estimated Creat Clear 47.79 Estimated GFR 95 ml/min Glucose 117 H (60-115) mg/dL Calcium 8.5 (8.4-10.6) mg/dL Troponin I < 0.01 (0.01-0.04) ng/mL ECG Data Attestation: I personally reviewed and interpreted this ECG as follows: Prior ECG tracings: available for review Interpretation: Normal sinus rhythm with a rate of 66 beats per minute, normal intervals, normal axis, no ST or T-wave abnormalities. Appears similar previous EKG on file Discharge Plan Discharge Clinical Impression: Near syncope, Post-op pain Patient Disposition: Home, Self-Care Condition: Improved Additional Instructions: Continue to take Tylenol, ibuprofen, oxycodone at home. Do recommend taking it on a schedule and not only when he started developing pain. Have close follow-up with your with your orthopedic surgeon. Return to emergency department for new or worsening symptoms Prescriptions: No Action coenzyme Q10 100 mg capsule PO DAILY multivitamin Tablet 1 tab PO QDAY turmeric 400 mg capsule PO Cholestyramine Light 4 gram powder 4 g PO TID Qty: 231 12RF Rx Instructions: administer w/meal; avoid other meds within 1hr before or 4-6hr after dose (DME) Walker- 2 Wheels [facility] See Rx Instructions .ROUTE .MEDSUPPLY Qty: 1 0RF Rx Instructions: As directed mecobalamin (vitamin B12) 1,000 mcg tablet,chewable 1,000 mcg PO QDAY clobetasol 0.05 % cream 1 applic topical BID PRN (Reason: psoriasis) Qty: 30 1RF celecoxib [Celebrex] 100 mg capsule 100 - 200 mg PO BID PRN (Reason: pain) Qty: 90 3RF levothyroxine 50 mcg tablet 50 mcg PO DAILY Qty: 90 3RF magnesium 250 mg tablet 250 mg PO QDAY sennosides-docusate sodium [Senna-S] 8.6-50 mg tablet 1 tab-cap PO BID PRN (Reason: constipation) Qty: 15 1RF Rx Instructions: Take while using narcotics. Hold for loose stools. aspirin 81 mg tablet,delayed release (DR/EC) 81 mg PO BID Qty: 60 0RF Rx Instructions: Take until gone for DVT prophylaxis ondansetron 4 mg tablet,disintegrating 4 mg PO Q8H PRN (Reason: nausea and vomiting) Qty: 15 1RF oxycodone 5 mg tablet 5 mg PO Q4-8H PRN (Reason: pain) Qty: 40 0RF estradiol 0.01 % (0.1 mg/gram) cream 1 g vaginal 2XW Qty: 42.5 12RF simvastatin 40 mg tablet 40 mg PO QHS Qty: 90 3RF Follow Up/Referrals: Teagan Boateng MD [Primary Care Provider, Family Practice] Stand Alone Forms: [employer] Info Instructions
--- NOTE | 2025-04-14 18:35 | PC.NURSE ---
removed mepilex dressing, replaced
== END 2025-04-14 18:40 | disposition home or self-care (01) ==
PROVIDERS: Emergency Provider Student in an Organized Health Care Education/Training Program; PCP Family Medicine
DX: R42 Dizziness and giddiness (principal); R55 Syncope and collapse; G89.18 Other acute postprocedural pain
CPT/HCPCS: 36415; 80048; 84484; 85025; 93005; 96374; 96375; 99284; J1171; J2270